=== PATIENT | female | born 1970 | race Caucasian/White ===

== ENCOUNTER 2022-07-21 07:17 | Inpatient (IN) | payer MEDICAID, OTHER ==
[~2022-07-21] VITALS: Ht 160 cm; Wt 62.7 kg
[2022-07-21] VITALS (8 sets, daily range): BP systolic 134–167; BP diastolic 71–81
[2022-07-21 07:51] LABS: BASOPHILS % (AUTO) 0.3 % (0.0-2.0); EOSINOPHILS % (AUTO) 1.6 % (1.0-6.0); HEMATOCRIT 37.6 % (36-46); HEMOGLOBIN 13.4 g/dL (12.0-16.0); LYMPHOCYTES # (AUTO) 1.9 K/uL (1.0-4.8); LYMPHOCYTES % (AUTO) 20.6 % (22.0-44.0); MEAN CORPUSCULAR HEMOGLOBIN 29.9 pg (26.0-34.0); MEAN CORPUSCULAR HGB CONC 35.6 G/dL (31.0-37.0); MEAN CORPUSCULAR VOLUME 84 fL (80-100); MONOCYTES # (AUTO) 0.7 K/uL (0.1-1.0); MONOCYTES % (AUTO) 7.4 % (2.0-9.0); NEUTROPHILS # (AUTO) 6.6 K/uL (1.8-7.7); NEUTROPHILS % (AUTO) 70.1 % (40.0-70.0); PLATELET COUNT (AUTO) 135 K/uL (150-450); RED BLOOD CELL COUNT(AUTO) 4.48 MIL/uL (4.00-5.20); RED CELL DISTRIBUTION WIDTH 13.4 % (11.5-14.5)
[2022-07-21 08:13] LABS: B-TYPE NATRIURETIC PEPTIDE 79 pg/mL (0-100)
[2022-07-21 08:14] LABS: ANION GAP 5 mmol/L (8-16); CALCIUM, TOTAL 9.8 mg/dL (8.8-10.5); CARBON DIOXIDE 30 mmol/L (22-29); CHLORIDE 104 mmol/L (98-107); CREATININE 0.72 mg/dL (0.60-1.30); GLOMERULAR FILTR. RATE CALC > 60 mL/min (>60); GLUCOSE,RANDOM 150 mg/dL (70-110); POTASSIUM 4.1 mmol/L (3.5-5.1); SODIUM SERUM 139 mmol/L (136-145); UREA NITROGEN, BLOOD 12 mg/dL (7-18)
[2022-07-21 08:39] LABS: INR 0.9 (0.9-1.1); PROTHROMBIN TIME 10.1 SEC (9.4-11.6)
[2022-07-21 08:40] LABS: ALANINE AMINOTRANSFERASE 23 U/L (12-78); ALKALINE PHOSPHATASE 83 U/L (46-116); ASPARTATE AMINOTRANSFERASE 24 U/L (15-37); BILIRUBIN,TOTAL 0.5 mg/dL (0.1-1.0); CREATINE KINASE, TOTAL ONLY 144 U/L (26-192); TOTAL PROTEIN, SERUM 7.7 g/dL (6.4-8.2)
[2022-07-21] MEDS ORDERED: DOPamine 400MG/D5W[STANDARD] 250 ML IV ONE (08:58)
[2022-07-21] MEDS ORDERED: HEPARIN SODIUM,PORCINE 5,000 UNITS/ML VIAL IVP ONE ×2 (10:15)
[2022-07-21] MEDS ORDERED: HEPARIN SODIUM 25000 UNITS/D5W 250 ML IV PRN (10:15)
[2022-07-21] MEDS ORDERED: HEPARIN SODIUM,PORCINE 5,000 UNITS/ML VIAL IVP PRN ×2 (10:15)
[2022-07-21] MEDS ORDERED: ALBUTEROL SULFATE 2.5 MG/0.5 ML NEB SOLUTION NEB PRN (10:45)
[2022-07-21] MEDS ORDERED: ENALAPRILAT DIHYDRATE 1.25 MG/ML VIAL IVP PRN (10:45)
[2022-07-21] MEDS ORDERED: IPRATROPIUM BROMIDE 0.5 MG/2.5 ML NEB SOLUTION NEB PRN (10:45)
[2022-07-21] MEDS ORDERED: ONDANSETRON HCL 4 MG/2 ML VIAL IVP PRN (10:45)
[2022-07-21] MEDS ORDERED: ACETAMINOPHEN 325 MG TABLET PO PRN ×2 (10:45→15:00)
[2022-07-21] MEDS ORDERED: NITROGLYCERIN 0.4 MG SUBLINGUAL TABLET #25 SL PRN (10:45)
[2022-07-21] MEDS ORDERED: DOCUSATE SODIUM 100 MG CAPSULE PO PRN (10:45)
[2022-07-21] MEDS ORDERED: BISACODYL 10 MG RECTAL RECTAL SUPPOSITORY PR PRN (10:45)
[2022-07-21 11:59] LABS: BASOPHILS % (AUTO) 0.3 % (0.0-2.0); EOSINOPHILS % (AUTO) 0.7 % (1.0-6.0); HEMATOCRIT 39.3 % (36-46); HEMOGLOBIN 13.7 g/dL (12.0-16.0); LYMPHOCYTES # (AUTO) 1.6 K/uL (1.0-4.8); LYMPHOCYTES % (AUTO) 15.7 % (22.0-44.0); MEAN CORPUSCULAR HEMOGLOBIN 29.2 pg (26.0-34.0); MEAN CORPUSCULAR HGB CONC 34.9 G/dL (31.0-37.0); MEAN CORPUSCULAR VOLUME 84 fL (80-100); MONOCYTES # (AUTO) 0.7 K/uL (0.1-1.0); MONOCYTES % (AUTO) 6.9 % (2.0-9.0); NEUTROPHILS # (AUTO) 7.6 K/uL (1.8-7.7); NEUTROPHILS % (AUTO) 76.4 % (40.0-70.0); PLATELET COUNT (AUTO) 140 K/uL (150-450); RED BLOOD CELL COUNT(AUTO) 4.69 MIL/uL (4.00-5.20); RED CELL DISTRIBUTION WIDTH 13.7 % (11.5-14.5)
[2022-07-21] MEDS ORDERED: IOHEXOL 300 MG/ML 50 ML VIAL ONE ×2 (12:07→12:08)
[2022-07-21] MEDS ORDERED: SODIUM BICARBONATE 50 MEQ/50 ML VIAL ONE (12:08)
[2022-07-21] MEDS ORDERED: LIDOCAINE/PF 1% 30 ML VIAL ONE (12:08)
[2022-07-21 12:41] LABS: APPEARANCE,URINE CLEAR (CLEAR); BILIRUBIN,URINE NEGATIVE (NEGATIVE); GLUCOSE, URINE (UA) NEGATIVE (NEGATIVE); KETONES,URINE NEGATIVE (NEGATIVE); LEUKOCYTE ESTERASE ,URINE NEGATIVE (NEGATIVE); NITRATE,URINE NEGATIVE (NEGATIVE); OCCULT BLOOD,URINE NEGATIVE (NEGATIVE); PH,URINE 7.5 (5.0-8.0); PROTEIN,URINE NEGATIVE (NEGATIVE); SPECIFIC GRAVITIY, URINE 1.007 (1.003-1.030); UROBILINOGEN,URINE <=1.0 mg/dL (<=1.0)
[2022-07-21 12:46] LABS: AMPHET/METH SCREEN,URINE NEGATIVE (NEGATIVE); BARBITURATE SCREEN, URINE NEGATIVE (NEGATIVE); BENZODIAZEPINES SCREEN,URINE NEGATIVE (NEGATIVE); CANNABINOID SCREEN,URINE NEGATIVE (NEGATIVE); COCAINE SCREEN,URINE NEGATIVE (NEGATIVE); METHADONE SCREEN, URINE NEGATIVE (NEGATIVE); OPIATE SCREEN,URINE NEGATIVE (NEGATIVE); PHENCYCLIDINE SCREEN,URINE NEGATIVE (NEGATIVE)
[2022-07-21] MEDS ORDERED: FentaNYL CITRATE PF 100 MCG/2 ML VIAL ONE (13:12)
[2022-07-21] MEDS ORDERED: MIDAZOLAM HCL 2 MG/2 ML VIAL ONE (13:12)
[2022-07-21] MEDS ORDERED: MIDAZOLAM HCL 2 MG/2 ML VIAL IVP ONE ×2 (13:30)
[2022-07-21] MEDS ORDERED: FentaNYL CITRATE PF 100 MCG/2 ML VIAL IVP ONE ×2 (13:30)
[2022-07-21] MEDS ORDERED: LIDOCAINE 1% 30 ML/SOD BICARB 8.4% 4 ML SQ ONE (13:30)
[2022-07-21] MEDS ORDERED: HYDROCODONE/ACETAMINOPHEN 5-325 MG TABLET ONE (15:14)
[2022-07-21] MEDS ORDERED: OxyCODONE HCL/ACETAMINOPHEN 5-325 MG TABLET ONE (15:18)
[2022-07-21] MEDS: OxyCODONE HCL/ACETAMINOPHEN 5-325 MG TABLET PO PRN ×2 (15:18→21:18)
[2022-07-21] MEDS ORDERED: PNEUMOCOCCAL VACCINE POLYVALENT 0.5 ML VIAL [PPSV23] IM. ONE (17:30)
[2022-07-21] MEDS ORDERED: SODIUM CHLORIDE 0.9% 500 ML IV ONE (20:03)
[2022-07-21] MEDS: CeFAZolin 1 GM/DEXTROSE 50 ML IV SCH (20:07)
[2022-07-21] MEDS ORDERED: ATORVASTATIN CALCIUM 40 MG TABLET PO SCH (21:00)
[2022-07-22 00:30] VITALS: BP 127/61
[2022-07-22] MEDS: CeFAZolin 1 GM/DEXTROSE 50 ML IV SCH ×2 (00:47→08:47)
[2022-07-22 04:28] VITALS: BP 134/76
[2022-07-22] MEDS: OxyCODONE HCL/ACETAMINOPHEN 5-325 MG TABLET PO PRN ×2 (04:38→11:58)
[2022-07-22 07:26] LABS: BASOPHILS % (AUTO) 0.3 % (0.0-2.0); EOSINOPHILS % (AUTO) 0.6 % (1.0-6.0); HEMATOCRIT 34.2 % (36-46); HEMOGLOBIN 12.6 g/dL (12.0-16.0); LYMPHOCYTES # (AUTO) 1.7 K/uL (1.0-4.8); LYMPHOCYTES % (AUTO) 14.9 % (22.0-44.0); MEAN CORPUSCULAR HEMOGLOBIN 30.4 pg (26.0-34.0); MEAN CORPUSCULAR HGB CONC 36.8 G/dL (31.0-37.0); MEAN CORPUSCULAR VOLUME 83 fL (80-100); MONOCYTES # (AUTO) 0.9 K/uL (0.1-1.0); MONOCYTES % (AUTO) 8.2 % (2.0-9.0); NEUTROPHILS # (AUTO) 8.4 K/uL (1.8-7.7); PLATELET COUNT (AUTO) 126 K/uL (150-450); RED BLOOD CELL COUNT(AUTO) 4.14 MIL/uL (4.00-5.20); RED CELL DISTRIBUTION WIDTH 13.5 % (11.5-14.5)
[2022-07-22 07:46] LABS: ALANINE AMINOTRANSFERASE 19 U/L (12-78); ALBUMIN 3.6 g/dL (3.4-5.0); ALKALINE PHOSPHATASE 80 U/L (46-116); ANION GAP 7 mmol/L (8-16); ASPARTATE AMINOTRANSFERASE 19 U/L (15-37); BILIRUBIN,TOTAL 0.4 mg/dL (0.1-1.0); CALCIUM, TOTAL 9.1 mg/dL (8.8-10.5); CARBON DIOXIDE 28 mmol/L (22-29); CHLORIDE 103 mmol/L (98-107); CREATININE 0.69 mg/dL (0.60-1.30); GLOMERULAR FILTR. RATE CALC > 60 mL/min (>60); GLUCOSE,RANDOM 144 mg/dL (70-110); POTASSIUM 3.6 mmol/L (3.5-5.1); SODIUM SERUM 138 mmol/L (136-145); UREA NITROGEN, BLOOD 13 mg/dL (7-18)
[2022-07-22 07:49] VITALS: BP 120/70
[2022-07-22 08:01] LABS: CHOL/HDL RATIO 2.8 (3.9-5.7); FREE T4 (FREE THYROXINE) 1.3 ng/dL (0.76-1.46); THYROID STIMULATING HORMONE 2.46 uIU/mL (0.36-3.74)
[2022-07-22] MEDS ORDERED: ASPIRIN 81 MG CHEWABLE TABLET PO SCH (09:00)
[2022-07-22] MEDS ORDERED: AmLODIPine BESYLATE 5 MG TABLET PO SCH (09:00)
[2022-07-22] MEDS ORDERED: METO25 PO (10:35)
[2022-07-22] MEDS ORDERED: ATOR40TA71 PO (10:35)
[2022-07-22] MEDS ORDERED: ASPI81 PO (10:35)
[2022-07-22 12:06] VITALS: BP 130/75
[2022-07-22 15:55] VITALS: BP 118/68
== END 2022-07-22 17:30 | disposition home or self-care (01) | DRG 171 ==
LOC: EMS 07:23 → AHU 10:59 → UNDOADMIN 10:59 → 5S 16:50
PROVIDERS: ADMIT Internal Medicine; ATTEND Internal Medicine
PROC: 0JH606Z Insertion of Pacemaker, Dual Chamber into Chest Subcutaneous Tissue and Fascia, Open Approach (ICD-10-PCS; principal; 2022-07-21)
PROC: 02H63JZ Insertion of Pacemaker Lead into Right Atrium, Percutaneous Approach (ICD-10-PCS; 2022-07-21)
PROC: 02HK3JZ Insertion of Pacemaker Lead into Right Ventricle, Percutaneous Approach (ICD-10-PCS; 2022-07-21)
DX: I49.5 Sick sinus syndrome (principal); E78.5 Hyperlipidemia, unspecified; I48.0 Paroxysmal atrial fibrillation; I10 Essential (primary) hypertension; Z79.899 Other long term (current) drug therapy; Z79.82 Long term (current) use of aspirin
CPT/HCPCS: 33208; 36005; 70450; 71045; 71046; 76000; 80053; 80061; 80307; 81003; 82550; 83880; 84439; 84443; 84484; 85025; 85610; 85730; 93005; 93306; 99291; G0378; J0690; J1265; J1644; J2250; J3010; J3490; J7040; Q9967; 36415-L1; 36415-TC

== ENCOUNTER 2022-08-13 22:05 | Inpatient (IN) | payer OTHER ==
[~2022-08-13] VITALS: Ht 160 cm; Wt 62.5 kg
[~2022-08-13 22:05] MED LIST: ASPI81 PO; ATOR40TA71 PO; METO25 PO
[2022-08-13] MEDS ORDERED: FAMOTIDINE 40 MG in SODIUM CHLORIDE 0.9% 100 ML IV ONE (22:15)
[2022-08-13 22:41] LABS: BASOPHILS % (AUTO) 0.2 % (0.0-2.0); EOSINOPHILS % (AUTO) 0.8 % (1.0-6.0); HEMATOCRIT 40.3 % (36-46); HEMOGLOBIN 13.9 g/dL (12.0-16.0); LYMPHOCYTES # (AUTO) 1.5 K/uL (1.0-4.8); LYMPHOCYTES % (AUTO) 12.2 % (22.0-44.0); MEAN CORPUSCULAR HEMOGLOBIN 29.4 pg (26.0-34.0); MEAN CORPUSCULAR HGB CONC 34.6 G/dL (31.0-37.0); MEAN CORPUSCULAR VOLUME 85 fL (80-100); MONOCYTES # (AUTO) 0.7 K/uL (0.1-1.0); MONOCYTES % (AUTO) 5.3 % (2.0-9.0); NEUTROPHILS # (AUTO) 10.2 K/uL (1.8-7.7); NEUTROPHILS % (AUTO) 81.5 % (40.0-70.0); PLATELET COUNT (AUTO) 224 K/uL (150-450); RED BLOOD CELL COUNT(AUTO) 4.73 MIL/uL (4.00-5.20); RED CELL DISTRIBUTION WIDTH 13.9 % (11.5-14.5)
[2022-08-13 22:50] LABS: ANION GAP 10 mmol/L (8-16); CALCIUM, TOTAL 10.3 mg/dL (8.8-10.5); CARBON DIOXIDE 27 mmol/L (22-29); CHLORIDE 101 mmol/L (98-107); CREATININE 0.78 mg/dL (0.60-1.30); GLOMERULAR FILTR. RATE CALC > 60 mL/min (>60); GLUCOSE,RANDOM 139 mg/dL (70-110); SODIUM SERUM 138 mmol/L (136-145); UREA NITROGEN, BLOOD 12 mg/dL (7-18)
[2022-08-13 22:52] LABS: PROTHROMBIN TIME 10.5 SEC (9.4-11.6)
[2022-08-13 22:57] LABS: ALANINE AMINOTRANSFERASE 40 U/L (12-78); ALBUMIN 4.3 g/dL (3.4-5.0); ALKALINE PHOSPHATASE 121 U/L (46-116); ASPARTATE AMINOTRANSFERASE 36 U/L (15-37); BILIRUBIN,TOTAL 0.8 mg/dL (0.1-1.0); CREATINE KINASE, TOTAL ONLY 47 U/L (26-192); LIPASE 54 U/L (73-393); TOTAL PROTEIN, SERUM 8.1 g/dL (6.4-8.2)
[2022-08-13 23:02] LABS: B-TYPE NATRIURETIC PEPTIDE 8 pg/mL (0-100)
[2022-08-13] MEDS ORDERED: ONDANSETRON HCL 4 MG/2 ML VIAL IVP PRN (23:30)
[2022-08-14] MEDS ORDERED: MORPHINE SULFATE 2 MG/ML SYRINGE IVP ONE
[2022-08-14] MEDS: HEPARIN SODIUM,PORCINE 5,000 UNITS/ML VIAL SQ SCH ×3 (00:31→15:49)
[2022-08-14 02:24] LABS: COVID AG,FIA SOURCE NASAL SWAB
[2022-08-14] MEDS: MORPHINE SULFATE 2 MG/ML SYRINGE IVP PRN ×2 (05:36→15:47)
[2022-08-14] MEDS ORDERED: SODIUM CHLORIDE 0.9% 0 ML ONE (07:38)
[2022-08-14] MEDS ORDERED: FAMOTIDINE 10 MG/ML 2 ML VIAL ONE (07:38)
[2022-08-14] MEDS: ASPIRIN 81 MG CHEWABLE TABLET PO SCH (08:47)
[2022-08-14] MEDS: METOPROLOL TARTRATE 25 MG TABLET PO SCH ×2 (08:47→20:30)
[2022-08-14] MEDS: ACETAMINOPHEN 325 MG TABLET PO PRN ×2 (08:53→17:53)
[2022-08-14 10:14] VITALS: BP 138/81
[2022-08-14 15:46] VITALS: BP 148/76
[2022-08-14 16:41] VITALS: BP 139/80
[2022-08-14 17:30] LABS: APPEARANCE,URINE CLEAR (CLEAR); BILIRUBIN,URINE NEGATIVE (NEGATIVE); GLUCOSE, URINE (UA) NEGATIVE (NEGATIVE); KETONES,URINE 40-60 mg/dL (NEGATIVE); LEUKOCYTE ESTERASE ,URINE NEGATIVE (NEGATIVE); NITRATE,URINE NEGATIVE (NEGATIVE); OCCULT BLOOD,URINE NEGATIVE (NEGATIVE); PROTEIN,URINE 30-70 mg/dL (NEGATIVE); UROBILINOGEN,URINE <=1.0 mg/dL (<=1.0)
[2022-08-14 19:43] VITALS: BP 130/70
[2022-08-14 19:48] VITALS: BP 107/63
[2022-08-14] MEDS ORDERED: ATORVASTATIN CALCIUM 40 MG TABLET PO SCH (21:00)
[2022-08-14 23:40] VITALS: BP 142/75
[2022-08-15] MEDS: ACETAMINOPHEN 325 MG TABLET PO PRN ×2 (00:01→05:21)
[2022-08-15] MEDS: HEPARIN SODIUM,PORCINE 5,000 UNITS/ML VIAL SQ SCH ×2 (00:01→09:13)
[2022-08-15 04:54] VITALS: BP 152/73
[2022-08-15 07:26] VITALS: BP 143/85
[2022-08-15] MEDS: ASPIRIN 81 MG CHEWABLE TABLET PO SCH (09:13)
[2022-08-15] MEDS: METOPROLOL TARTRATE 25 MG TABLET PO SCH (09:13)
[2022-08-15 11:17] VITALS: BP 129/78
[2022-08-15 15:42] VITALS: BP 132/68
[2022-08-16 15:07] LABS: HEPATITIS C AB (EIA) Non Reactive (Non Reactive)
== END 2022-08-15 17:16 | disposition home or self-care (01) | DRG 204 ==
LOC: EMS 22:05 → 5S 08-14 05:24 → 5N 08-14 09:22
PROVIDERS: ADMIT Internal Medicine; ATTEND Internal Medicine
DX: R55 Syncope and collapse (principal); I49.5 Sick sinus syndrome; E78.5 Hyperlipidemia, unspecified; F41.9 Anxiety disorder, unspecified; R07.9 Chest pain, unspecified; Z95.0 Presence of cardiac pacemaker; I10 Essential (primary) hypertension; R11.2 Nausea with vomiting, unspecified; F41.1 Generalized anxiety disorder; Z20.822 Contact with and (suspected) exposure to COVID-19
CPT/HCPCS: 71045; 76705; 80053; 81003; 82550; 83690; 83880; 84484; 85025; 85610; 85730; 86803; 87340; 93005; 93306; 99285; J1644; J2270; J2405; J3490; J7050; 36415-L1; 36415-TC